=== PATIENT | female | born 1975 | race African-American/Black ===

== ENCOUNTER → 2018-10-09 | Outpatient (CLI) | payer BC | LOC: MC.RAD 14:03 | DX: Z12.31 Encounter for screening mammogram for malignant neoplasm of breast (principal) ==

== ENCOUNTER → 2020-01-22 | Outpatient (CLI) | payer BC | LOC: ZCOL.LAB 18:35 | DX: R05 Cough (principal); Z20.828 Contact with and (suspected) exposure to other viral communicable diseases ==

== ENCOUNTER → 2020-04-30 | Outpatient (CLI) | payer OTHER | LOC: MC.RAD 13:30 | DX: Z12.31 Encounter for screening mammogram for malignant neoplasm of breast (principal) ==

== ENCOUNTER → 2020-09-25 | Outpatient (CLI) | payer OTHER | LOC: COL.RAD 11:04 | DX: G56.01 Carpal tunnel syndrome, right upper limb (principal) ==

== ENCOUNTER → 2021-05-20 | Outpatient (CLI) | payer OTHER | LOC: MC.RAD 07:54 | DX: Z12.31 Encounter for screening mammogram for malignant neoplasm of breast (principal); N64.89 Other specified disorders of breast ==

== ENCOUNTER → 2021-05-28 | Outpatient (CLI) | payer OTHER | LOC: MC.RAD 10:53 | DX: N64.89 Other specified disorders of breast (principal) ==

== ENCOUNTER → 2021-12-27 | Outpatient (CLI) | payer OTHER | LOC: MC.RAD 10:00 | DX: N64.89 Other specified disorders of breast (principal) ==

== ENCOUNTER → 2022-06-16 | Outpatient (CLI) | payer BC | LOC: MC.RAD 12:54 | DX: Z12.31 Encounter for screening mammogram for malignant neoplasm of breast (principal) ==

== ENCOUNTER → 2024-03-19 | Outpatient (CLI) | payer BC | LOC: MC.RAD 09:28 | DX: Z12.31 Encounter for screening mammogram for malignant neoplasm of breast (principal) ==